=== PATIENT | male | born 1970 | race Two or more races ===

== ENCOUNTER 2021-05-27 13:30 | Outpatient (REF) | payer MEDICAID, SELFPAY ==
--- NOTE | ~2021-05-27 | XR_ITS ---
EXAMINATION: XR lumbar spine 4V min CLINICAL INFORMATION: Reason for Exam LOW BACK PAIN COMPARISON: None TECHNIQUE: 5 views of the lumbar spine XR/XR lumbar spine 4V min FINDINGS/IMPRESSION: Transitional anatomy with 4 nonrib-bearing lumbar-type vertebral bodies, sacralization of L5 and a rudimentary L5-S1 disc space. The last well-formed disc space will be referred to as L4-L5. If intervention is being considered recommend total spine radiographs to ensure accurate numbering Vertebral body heights are maintained. Alignment is maintained. Possible left L5 pars defect. This could be confirmed with CT if warranted. Mild multilevel degenerative disc disease worst at L3-L4 with loss of disc space height and facet arthropathy. Atherosclerotic calcifications of the abdominal aorta.
== END 2021-05-27 13:31 | disposition home or self-care (01) ==
LOC: HO.XRAY 13:30
PROVIDERS: PCP Nurse Practitioner Family; Visit Provider Emergency Medicine
DX: M54.50 Low back pain, unspecified (principal)
CPT/HCPCS: 72110

== ENCOUNTER 2021-07-23 08:25 | Outpatient (REF) | payer MEDICAID, SELFPAY ==
--- NOTE | ~2021-07-23 | US_ITS ---
EXAMINATION: US ABDOMEN COMPLETE CLINICAL INFORMATION: Thrombocytopenia. Hypersplenism. Biliary stent. COMPARISON: None TECHNIQUE: Real-time imaging of the abdominal viscera. FINDINGS: PANCREAS: Largely obscured by interposed bowel gas. ABDOMINAL AORTA: The proximal, mid, and distal segments are normal in caliber. INFERIOR VENA CAVA: Visualized portions are normal. LIVER: Normal. The liver is normal in size. The liver contour is normal. Parenchymal echogenicity is normal. No focal hepatic lesion. There is no intrahepatic biliary duct dilatation seen. GALLBLADDER: Surgically absent. COMMON BILE DUCT: Normal in caliber measuring 0.5 cm in diameter. RIGHT KIDNEY: Cortical thinning is present. There is a punctate nonobstructive calculus in the lower pole. A 1.5 cm simple cyst is present in the upper pole. No hydronephrosis The kidney measures 12.7 cm in maximum dimension. LEFT KIDNEY: Normal. No hydronephrosis. No renal calculi or focal parenchymal lesions. The kidney measures 12.4 cm in maximum dimension. SPLEEN: Normal. The spleen measures 12.9 cm in maximum dimension. FREE FLUID: None. US/US abdomen complete IMPRESSION: Mild right renal cortical thinning. Punctate nonobstructive calculus, lower pole right kidney. Unremarkable spleen
== END 2021-07-23 08:26 | disposition home or self-care (01) ==
LOC: HO.US 08:25
PROVIDERS: Visit Provider Nurse Practitioner Family
DX: D69.6 Thrombocytopenia, unspecified (principal); R74.8 Abnormal levels of other serum enzymes
CPT/HCPCS: 76700

== ENCOUNTER → 2021-07-29 11:55 | Outpatient (BNVA) | payer MEDICAID, SELFPAY | PROVIDERS: PCP Nurse Practitioner Family; Referring Provider Nurse Practitioner Family; Visit Provider Nurse Practitioner Family | DX: R49.0 Dysphonia (principal) | CPT/HCPCS: 99202 ==

== ENCOUNTER → 2021-09-01 10:46 | Outpatient (BNVA) | payer MEDICAID, SELFPAY | PROVIDERS: PCP Nurse Practitioner Family; Referring Provider Nurse Practitioner Family; Visit Provider Internal Medicine | DX: E11.22 Type 2 diabetes mellitus with diabetic chronic kidney disease (principal); I12.9 Hypertensive chronic kidney disease with stage 1 through stage 4 chronic kidney disease, or unspecified chronic kidney disease; N18.9 Chronic kidney disease, unspecified; I25.10 Atherosclerotic heart disease of native coronary artery without angina pectoris; I65.23 Occlusion and stenosis of bilateral carotid arteries; Z79.4 Long term (current) use of insulin | CPT/HCPCS: 93005; 99202 ==

== ENCOUNTER 2021-09-29 12:15 | Outpatient (REF) | payer MEDICAID, SELFPAY ==
[2021-09-29 13:35] LABS: Amylase 52 U/L (28-100)
== END 2021-09-29 12:16 | disposition home or self-care (01) ==
LOC: HO.LAB 12:15
PROVIDERS: PCP Nurse Practitioner Family; Visit Provider Nurse Practitioner Family
DX: K58.9 Irritable bowel syndrome, unspecified (principal); K21.9 Gastro-esophageal reflux disease without esophagitis; R49.0 Dysphonia; K86.1 Other chronic pancreatitis
CPT/HCPCS: 36415; 82150; 86003; 99212

== ENCOUNTER 2021-09-30 13:37 | Outpatient (REF) | payer MEDICAID, SELFPAY ==
[2021-10-07 22:07] LABS: Pancreatic Elastase-1 16 mcg/g
== END 2021-09-30 13:38 | disposition home or self-care (01) ==
LOC: HO.LNP 13:37
PROVIDERS: Visit Provider Nurse Practitioner Family
DX: R10.9 Unspecified abdominal pain (principal)
CPT/HCPCS: 82656

== ENCOUNTER 2021-10-07 08:01 | Outpatient (REF) | payer MEDICAID, SELFPAY ==
--- NOTE | ~2021-10-07 | FL_ITS ---
EXAMINATION: FL BARIUM SWALLOW CLINICAL INFORMATION: Dysphonia COMPARISON: None TECHNIQUE: Barium swallow examination is performed using fluoroscopic evaluation in addition to multiple fluoroscopic spot views. The patient is imaged both upright and prone and using both thick and thin sulfate along with effervescent granules. Barium tablet was also administered. Fluoroscopy time: 1.1 minutes DAP: 12 Gycm2 Images: 59 FINDINGS: The swallowing mechanism is normal. No aspiration or penetration is seen. There is gastroesophageal reflux. No hernia is seen. No stricture or mass. Barium tablet passed freely into the stomach. FL/FL barium swallow IMPRESSION: Gastroesophageal reflux.
== END 2021-10-07 08:02 | disposition home or self-care (01) ==
LOC: HO.XRAY 08:01
PROVIDERS: PCP Nurse Practitioner Family; Visit Provider Nurse Practitioner Family
DX: R49.0 Dysphonia (principal); K21.9 Gastro-esophageal reflux disease without esophagitis
CPT/HCPCS: 74220

== ENCOUNTER → 2021-10-08 09:06 | Outpatient (REF) | payer MEDICAID, SELFPAY ==
--- NOTE | 2021-10-08 09:09 | CA_ITS ---
Transthoracic Echocardiogram Patient (Last, First, Middle): Deep Mckoy A Gender: Male Date of : 1970 Age: 51 Procedure Date: 10/08/2021 Procedure Type: Transthoracic Echocardiogram Location: OP Height: 180.34 cm Weight: 108.86 kg BSA: 2.28 m2 Heart Rate: bpm BP: 110 / 76 mmHg [facility] Spiritual Care Coordinator: AGUSTO Referring MD: Matt Nye MD Spinning Bath Person: Mauro Nevarez MD Symptoms: I25.10 - Atherosclerotic heart disease of [place] coronary... Study Quality: Technically Difficult/contrast Conclusions: - 1. Mildly reduced LV ejection fraction with LVEF of 45-50% with impaired relaxation filling pattern with underlying regional wall motion abnormality suggestive of coronary artery disease 2. Normal cardiac valvular Doppler Findings Procedure Information Contrast agent, definity, is being given per protocol without apparent complications. Left Ventricle Normal left ventricular cavity size. There is normal left ventricular wall thickness. The left ventricular systolic function is mildly decreased. The visually estimated ejection fraction is between 45-50%. There is evidence of regional wall motion abnormalities. There is paradoxical septal motion consistent with post-operative status. Spectral Doppler is indicative of an impaired relaxation filling pattern. E/E prime ratio is between 8 and 15 consistent with indeterminate filling pressures. Wall Motion Rest Echo Findings The inferolateral wall is hypokinetic. The basal inferior and basal inferoseptal segments are akinetic. All other scored wall segments showed normal motion. Right Ventricle The right ventricle was not well visualized. Atria The left atrium is mildly dilated. Interatrial shunt cannot be excluded. The right atrium was not well visualized. Aortic Valve There is mild calcification of the aortic valve. There is mild thickening of the aortic valve. There is no aortic valve stenosis. There is no aortic valve regurgitation. Mitral Valve There is mild anterior and posterior mitral leaflet thickening. There is mild mitral annular calcification. There is trace mitral valve regurgitation. There is no mitral valve stenosis. Pulmonic Valve The pulmonic valve was not well visualized. Tricuspid Valve The tricuspid valve was not well visualized. Tricuspid regurgitation envelope is inadequate for calculation of right ventricular systolic pressure. Great Vessels All visible segments of the aorta are normal in size. The pulmonary artery was not well visualized. Small plaque is seen in the sino tubular ridge. Venous The inferior vena cava was not well visualized. Pericardium/Pleural The pericardium was not well visualized. Prior Study Comparison No prior study available for comparison. Measurements 2D Linear Measurements IVSd: 1.12 0.6-0.9/0.6-1.0 cm LVIDd: 3.30 3.9-5.3/4.2-5.9 cm LVIDd Index: 1.45 2.4-3.2/2.2-3.1 cm/m2 LVIDs: 2.90 2.0-3.6 cm LVPWd: 1.08 0.7-1.1 cm LA Diam: 3.30 2.7-3.8/3.0-4.0 cm LAIDs Index: 1.45 1.5-2.3 cm/m2 LV Mass: 135.66 67-162/88-224 g LV Mass Index: 59.50 43-95/49-115 g/m2 LVOT Diam: 2.20 3.0+(-)1.3 cm 2D Systolic Function EF 4C: 49.70 >55% EF 2C: 48.80 >55% EF BiP: 49.10 >55% Mitral Valve MV VTI: 0.26 MV Pk Duarte: 1.10 MV Mn Duarte: 0.82 MV Pk Grad: 5.00 MV Mn Grad: 3.00 MV Pk E: 0.99 MV PK A: 1.04 MV Decel Time: 206.00 E/A: 0.90 E'Lateral: 9.90 E'Medial: 5.66 E/E' Med: 17.40 E/E' Lat: 9.90 PHT: 60.00 MVA PHT: 3.67 MVA Continuity: 2.64 Decel [place]: 4.77 Aortic Valve AoV Pk Duarte: 1.38 AoV Mn [place]arte: 0.99 AoV VTI: 0.33 AoV Pk Grad: 8.00 Aov Mn Grad: 4.00 JAJA Cont.VTI: 2.08 LVOT LVOT Pk [place]arte: 0.87 LVOT Mn [place]: 0.63 LVOT VTI: 0.18 LVOT Pk Grad: 3.00 LVOT Mn Grad: 2.00 LVOT Diam: 2.20 LVOT Area: 3.80 Diastolic Function MV Pk E: 0.99 MV Pk A: 1.04 E/A: 0.90 E'Medial: 5.66 E/E' Med: 17.40 E' Laterial: 9.90 E/E' Lat: 9.90 Right Ventricle TAPSE (mm): 11.50 Great Vessels Aorta Sinus of Valsalva: 4.00 2.0-3.[address] [place]: 2.60 1.7-3.4 cm Ao Asc: 3.50 2.1-3.4 cm Updated in Other Vendor System with Status of Final Mauro Nevarez MD electronically signed on 10/09/2021 12:09:33 PM with status of Final
== END ==
LOC: HO.CARD 09:06
PROVIDERS: PCP Nurse Practitioner Family; Visit Provider Internal Medicine
DX: I25.10 Atherosclerotic heart disease of native coronary artery without angina pectoris (principal); Z95.1 Presence of aortocoronary bypass graft
CPT/HCPCS: 93306; Q9957

== ENCOUNTER → 2021-10-13 07:54 | Outpatient (REF) | payer MEDICAID, SELFPAY | LOC: HO.SL 07:54 | PROVIDERS: PCP Nurse Practitioner Family; Visit Provider Internal Medicine | DX: G47.33 Obstructive sleep apnea (adult) (pediatric) (principal); I25.10 Atherosclerotic heart disease of native coronary artery without angina pectoris | CPT/HCPCS: 95806 ==

== ENCOUNTER → 2021-11-13 08:02 | Outpatient (REF) | payer MEDICAID, SELFPAY ==
--- NOTE | ~2021-11-13 | NM_ITS ---
Myocardial perfusion study Indication: Atherosclerotic heart disease to evaluate for myocardial ischemia Technique: The patient was brought in for a Lexiscan perfusion study on 11/13/2021. Patient performed low-level exercise and was injected 0.4 mg of Lexiscan intravenously. Within a minute of injection, 40 mCi of sestamibi was given intravenously. Images were obtained using the SPECT gamma camera interlaced with the gating device. Images were obtained in supine position. Resting perfusion study was performed on 11/16/2021. Patient was administered 40 mCi of sestamibi intravenously at rest. Images were then obtained in supine position. Images obtained with and without CT attenuation. Total DLP 100 mGy-cm. Images were processed with the software and compared side to side in short axis, horizontal long axis and vertical long axis views. Findings: The stress perfusion study showed non attenuated images show mildly reduced uptake in the basal and mid anterolateral wall of the LV myocardium. There is also moderately to severely reduced uptake in the basal inferior wall of the LV myocardium. Remainder of the LV myocardium is normally perfused. Attenuation corrected images show mildly reduced uptake in the basal and mid inferolateral wall of the LV myocardium along with moderately reduced uptake in the basal inferior wall of the LV myocardium. The gated study shows normal LV systolic function with calculated LVEF of 58%. LV cavity is normal in size. The gated study shows normal systolic wall thickening and contraction of segments. Resting study shows both on attenuated corrected as well as non attenuated images there is improved uptake in the basal and mid anterolateral as well as mildly improved uptake in the basal inferior wall of the LV myocardium. Gating at rest reveals normal systolic wall motion with ejection fraction at 58%. The findings are consistent with mild intensity reversible defect in the mid and basal anterolateral as well as basal inferior wall suggestive of ischemia. MN/MN cardiolite stress test Impression: 1. Myocardial perfusion imaging study shows mild intensity basal and mid anterolateral as well as basal inferior wall ischemia 2. Gated LVEF is 58% 3. Transient ischemic dilatation not present EKG is nondiagnostic for ischemia
--- NOTE | 2021-11-13 08:05 | CA_ITS ---
Acquisition Time: 2021-11-13 08:15:26 Total Exercise Time: 00:02:00 Test Indications: Dyspnea Medications: SEE H Protocol: LEXISCAN Max HR: 100 BPM 59% of Pred: 167 BPM Max BP: 108/062 mmHG Max Work Load: 1.0 METS Pharmacological stress test with Lexiscan injection, while sitting and moving his left arm, with shortness of breath, no chest discomfort, with normotensive response to injection, without arrythmia, with nondiagnostic EKG for ischemia. In recovery hie reported sob and headache that was treated with Aminophyllline 75mg IVP to reverse Lexiscan with gradual resolution of symptoms. Nuclear images pending. Test reviewed with Dr Nye. Referred By: Matt Nye Overread By: SILVANO DESIR
== END ==
LOC: HO.CARD 08:02
PROVIDERS: Visit Provider Internal Medicine
DX: R06.02 Shortness of breath (principal); Z95.1 Presence of aortocoronary bypass graft
CPT/HCPCS: 78452; 93017; A9500; J0280; J2785

== ENCOUNTER → 2021-11-17 09:01 | Outpatient (BNVA) | payer MEDICAID, SELFPAY | PROVIDERS: PCP Nurse Practitioner Family; Visit Provider Internal Medicine | DX: G47.33 Obstructive sleep apnea (adult) (pediatric) (principal); E11.8 Type 2 diabetes mellitus with unspecified complications; E11.22 Type 2 diabetes mellitus with diabetic chronic kidney disease; I12.9 Hypertensive chronic kidney disease with stage 1 through stage 4 chronic kidney disease, or unspecified chronic kidney disease; N18.9 Chronic kidney disease, unspecified; I65.23 Occlusion and stenosis of bilateral carotid arteries; Z95.1 Presence of aortocoronary bypass graft | CPT/HCPCS: 99202 ==